=== PATIENT | female | born 1945 | race African-American/Black ===

== ENCOUNTER 2020-10-09 11:07 | Emergency (ER) | payer MEDICARE, OTHER, SELFPAY ==
--- NOTE | ~2020-10-09 | CT_ITS ---
EXAMINATION: CT brain wo con EXAM DATE: 10/09/2020 12:39 INDICATION: Blindness, vision loss for 6 months. High blood pressure. TECHNIQUE: Spiral CT of the head was performed without contrast. Axial, coronal and sagittal images were reviewed. The dose-length product (DLP) for this examination was 605.33 mGy-cm. The exposure w as tailored according to patient size, and iterative reconstruction (ASIR) was used as additional dos e reduction technique. There is no prior study for comparison. FINDINGS: There is no acute intraparenchymal hemorrhage. No evidence of intraparenchymal brain mass lesion. No evidence of acute infarction. Please note that initial head CT has limited sensitivity f or small or acute infarctions. There is mild periventricular and subcortical hypodensity, nonspecific but probably related to small vessel ischemic disease. There is mild to moderate prominence of the sulci and ventricles related to cerebral atrophy. There is intracranial carotid arteriosclerosis. There are no extra-axial collections. There is no mass effect or midline shift. The orbits are unr emarkable. Soft tissue is unremarkable. The visualized sinuses and mastoid air cells are well aerat ed. IMPRESSION: 1. No acute intracranial findings. 2. Chronic age related findings. Reviewed, dictated and finalized at location A.
[2020-10-09 11:13] VITALS: BP 175/125; PULSE 114; RESP 18; TEMP 36.3; O2SAT 98
--- NOTE | 2020-10-09 12:08 | PC.NURSE ---
x6 months high blood pressure, lost my vision , has been out of her meds x4 months but I hadn't needed it . C/o this week falling down, dizzy, headaches , BP measured at home SBP in 260's last night (repeat SBP at home 190's). Currently not on rxn meds. Bilat eyes pitch blackness right now , and reports pressure and frontal/top headache, dizziness. Denies current N/V. NSR on monitor
[2020-10-09 12:12] VITALS: BP 162/126; PULSE 84; RESP 13; O2SAT 100
--- NOTE | 2020-10-09 12:27 | ED.RECABL ---
HPI - Recheck/Abnormal Lab/Rx General Chief Complaint: Recheck/Abnormal Lab/Rx Stated Complaint: high BP/dizziness/no vision/syncopal Time Seen by Provider: 10/09/20 12:10 History of Present Illness HPI narrative: 75 yo female w/ h/o htn and glaucoma presents to the ED for hypertension and vision loss. She reports that she has been diagnosed with hypertension in the past and was treated. She then had normal blood pressure measurements for awhile and was taken off of her medications. She has been keeping track of blood pressure and notes that it has gotten very high again. She reports that she has also had intermittent vision loss for the past 6 months. She cannot see anything at this time. The last time she was able to see was 2 days ago. She says that she did see an eye doctor at one point and they told her that she had glaucoma and there was nothing they could do. Related Data Home Medications Medication Instructions Recorded Confirmed No Home Medications 10/09/20 10/09/20 Allergies Allergy/AdvReac Type Severity Reaction Status Date / Time codeine Allergy Unknown Verified 10/09/20 12:12 ragweed pollen Allergy Itching Verified 10/09/20 12:12 Review of Systems Review of Systems: All systems reviewed & are unremarkable except as noted in HPI and below Constitutional: Constitutional: Denies chills and Denies fever(s) Eyes: Eyes: Reports as per HPI ENT: Reports nasal congestion Comments: sinus pressure Cardiovascular: Cardiovascular: Denies chest pain Respiratory: Respiratory: Denies dyspnea Gastrointestinal: Gastrointestinal: Reports no additional gastrointestinal complaints Genitourinary: Genitourinary: Reports no additional female genitourinary complaints Neurologic: Denies dizziness, Reports headache(s) and Denies weakness [facility] Past Medical History Medical History (Updated 10/17/20 @ 12:10 by Ran Clark MD) Glaucoma Social History Social History Gender identity (if verbalized by the patient): Female Exam Const: General: healthy appearing, no acute distress and alert Orientation/consciousness: patient oriented x3 HENMT: Head: normal to inspection Ears: TM's normal bilaterally and EAC's normal Face and sinus: normal facial exam and sinuses nontender Eyes: Other: Minimal reaction to light. No blink to threat. IOP R: 48 L: 51 Neck: Neck: normal visual inspection Resp: Effort & Inspection: normal respiratory effort Auscultation: clear to auscultation bilaterally, no rales, no rhonchi and no wheezes Cardio: Jugular venous distension: no JVD Rate: regular rate Rhythm: regular rhythm Heart sounds: no murmurs GI: Inspection: non-distended GI Palp: Yes Soft to palpation and No Tenderness to palpation present (GI) Skin: General skin exam: normal color Neuro: General: patient oriented x3 and moves all extremities Speech: normal speech Extrem: General: no edema Psych: Appearance: well kempt Affect: normal affect Course Vital Signs Vital signs: Vital Signs Temperature 36.3 C L 10/09/20 11:13 Pulse Rate 114 H 10/09/20 11:13 Respiratory Rate 18 10/09/20 11:13 Blood Pressure 175/125 H 10/09/20 11:13 Pulse Oximetry 98 10/09/20 11:13 Temperature 36.3 C L 10/09/20 11:13 Pulse Rate 67 10/09/20 15:55 Respiratory Rate 14 10/09/20 15:55 Blood Pressure 146/79 H 10/09/20 15:55 Pulse Oximetry 100 10/09/20 15:55 MDM - Recheck/Abnormal Lab/Rx MDM Narrative Medical decision making narrative: Patient discussed with [facility]mology at [facility] duration of these symptoms recovery is not likely, but given that she reports having vision 2 days ago they are willing to accept the transfer and attempt treatment. Differential Diagnosis Differential diagnosis: Likely other (htn, glaucoma, CVA, other) Medical Records Attestation: I reviewed the patient's medical records. Lab Data Attestation: I reviewed the patient's lab results. Result diagrams: 0
[2020-10-09 12:51] LABS: Basophils Percent Auto 0.6 % (0.2-1.2); Eosinophils Absolute Auto 0.3 K/mm3 (0-0.3); Eosinophils Percent Auto 4.7 % (0-4.4); Hematocrit 42.6 % (37.0-47.0); Hemoglobin 13.4 g/dL (12.0-15.0); Immature Granulocyte Absolute 0.03 K/mm3 (0.00-0.031); Immature Granulocyte Percent A 0.4 % (0-0.5); Lymphocytes Absolute Auto 1.65 K/mm3 (0.9-3.2); Lymphocytes Percent Auto 24.4 % (18.3-44.2); Mean Corpuscular HGB Conc 31.5 g/dl (32-36); Mean Corpuscular Hemoglobin 27.4 pg (26-34); Mean Corpuscular Volume 87.1 fl (80-100); Mean Platelet Volume 10.1 fl (7.4-10.4); Monocytes Absolute Auto 0.6 K/mm3 (0.1-0.6); Monocytes Percent Auto 9.3 % (2.6-8.5); Neutrophils Absolute Auto 4.1 K/mm3 (1.3-6.7); Neutrophils Percent Auto 60.6 % (45.5-73.1); Platelet Count Result 234 k/mm3 (150-375); Red Blood Count 4.89 M/mm3 (4.2-5.4); Red Cell Distribution Width 13.2 % (11.5-14.5); White Blood Count 6.8 K/mm3 (4.5-10.0)
[2020-10-09 13:02] LABS: Alanine Aminotransferase 15 U/L (4-35); Albumin Level 4.4 g/dL (3.5-5.1); Alkaline Phosphatase 79 U/L (38-126); Anion Gap 7 mmol/L (8-16); Aspartate Amino Transferase 28 U/L (14-36); Bilirubin,Total 0.5 mg/dL (0.2-1.3); Blood Urea Nitrogen 16 mg/dL (7-17); Calcium 9.8 mg/dL (8.4-10.2); Carbon Dioxide 30 mmol/L (22-30); Chloride 106 mmol/L (98-107); Estimated CRCL calculation 34 ml/min; Estimated Glomerular Filt Rate > 60; Glucose 89 mg/dL (65-105); Potassium 3.6 mmol/L (3.4-5.0); Sodium 143 mmol/L (137-145)
[2020-10-09 13:02] LABS: Partial Thromboplastin Time 25.7 SECONDS (22.3-36.8); Prothrombin Time 13.7 Seconds (11.1-14.7)
[2020-10-09 13:04] LABS: Add Urine Microscopic? YES; Appearance Urine Cloudy (Clear); Bilirubin Urine Negative (Negative); Blood Urine Negative (Negative); Color Urine Amber (Yellow); Glucose Urine UA Negative (Negative); Hyaline Casts Urine 50+ /lpf; Ketones Urine Trace mg/dL (Negative); Leukocyte Esterase Ur Trace LEU/UL (Negative); Mucus Urine Heavy /lpf; Nitrate Urine Negative (Negative); Protein Urine 1+ mg/dL (Negative); Specific Grav Ur 1.027 (1.001-1.035); Squamous Epithelial Cell Urine Few /hpf (Few); Urobilinogen Urine Negative mg/dL (<2.0)
[2020-10-09] MEDS: LABETALOL HCL INJ 100 MG/20 ML VIAL 20 MG IV PUSH (13:13)
[2020-10-09 14:00] VITALS: BP 119/80; PULSE 65; RESP 11; O2SAT 100
[2020-10-09 14:31] VITALS: BP 123/86; PULSE 63; RESP 12; O2SAT 100
--- NOTE | 2020-10-09 14:31 | PC.NURSE ---
Pt AOx3, clear speech, equal strength all extremities, denies headache pain, just my eyes are hurting, the R more than L, like I'm stretching them wide open . States bilat vision has been a dark pit x2 days, reports R eye cataract surgery 1.5yrs ago
[2020-10-09] MEDS: TIMOLOL MALEATE 0.5% OP SOLN 5 ML BOTTLE 1 DROP EACH EYE (15:07)
[2020-10-09] MEDS: WATER, STERILE FOR INJECTION 10 ML VIAL XX (15:08)
[2020-10-09] MEDS: acetaZOLAMIDE SODIUM FOR INJ 500 MG VIAL IV PUSH (15:08)
--- NOTE | 2020-10-09 15:22 | PC.NURSE ---
Report called to [facility] at [facility], ambulance ETA 25 min
[2020-10-09 15:55] VITALS: BP 146/79; PULSE 67; RESP 14; O2SAT 100
== END 2020-10-09 16:26 | disposition short-term general hospital (02) ==
PROVIDERS: Emergency Provider Emergency Medicine
DX: I10 Essential (primary) hypertension (principal); H40.9 Unspecified glaucoma
CPT/HCPCS: 36415; 70450; 80053; 81001; 85025; 85610; 85730; 96374; 96375; 99285; A9270; J1120